=== PATIENT | female | born 1990 | race Caucasian/White ===

== ENCOUNTER → 2021-03-24 11:29 | Outpatient (BNVA) | payer OTHER, SELFPAY | PROVIDERS: Family Provider Family Medicine; PCP Family Medicine; Visit Provider Registered Nurse | DX: N39.0 Urinary tract infection, site not specified (principal); R39.9 Unspecified symptoms and signs involving the genitourinary system | CPT/HCPCS: 81000 ==

== ENCOUNTER 2021-04-25 15:08 | Outpatient (CLI) | payer OTHER, SELFPAY ==
--- NOTE | 2021-04-25 15:32 | XR_ITS ---
WS: [id number] Chest with right rib detail, 04/25/2021 Clinical Data: PLEURODYNIA Comparison: None. Findings: The lungs show no nodules, masses, or effusions. The heart is normal. No pneumonia or pneumothorax is seen. The ribs are intact. No rib fractures seen. No subcutaneous emphysema is present. XR/XR ribs RT mn 3V w [id number] Impression: Negative chest with right rib detail.
== END 2021-04-25 15:09 | disposition home or self-care (01) ==
PROVIDERS: PCP Nurse Practitioner Family; Visit Provider Nurse Practitioner Family
DX: R07.81 Pleurodynia (principal)
CPT/HCPCS: 71101

== ENCOUNTER 2023-04-23 10:59 | Outpatient (CLI) | payer OTHER, SELFPAY ==
--- NOTE | 2023-04-23 10:30 | US_ITS ---
WS: [id number] ULTRASOUND EARLY TECHNIQUE: transvaginal sonography to better evaluate the uterus and ovaries. CLINICAL INFORMATION: O20.0 - Threatened LMP: 03/12/2023 Beta hCG: Unknown. COMPARISON: None. FINDINGS: UTERUS AND GESTATIONAL SAC Intrauterine gestations: Single live intrauterine with gestational sac and pole. Smal l amount of fluid in the cervix. Tiny cyst within the endometrium measuring 4 mm likely incidental Estimated gestational age: 6w2d with estimated delivery 12/15/2023 Yolk sac: 0.5 cm. [place] rump length (CRL): 0.6 cm. heart motion: 136 BPM. Subchorionic hemorrhage: None. OVARIES Right ovary: Right ovarian cyst or corpus luteum cyst measuring 2.2 x 2.4 x 2.4 cm left ovary: Normal. FREE FLUID None. IMPRESSION: 1. Single live intrauterine with cardiac activity 136 bpm. 2. pole visualized with estimated gestational age; 6w2d 3. No visualized subchorionic hemorrhage. 4. Small amount of fluid in the cervix. 5. Right ovarian cyst or corpus luteum cyst measuring 2.2 x 2.4 x 2.4 cm. Otherwise normal ovaries. 6. No free fluid in the cul-de-sac.
== END 2023-04-23 11:00 | disposition home or self-care (01) ==
PROVIDERS: PCP Nurse Practitioner Family; Visit Provider Nurse Practitioner Women's Health
DX: O20.0 Threatened abortion (principal); O34.81 Maternal care for other abnormalities of pelvic organs, first trimester; N83.11 Corpus luteum cyst of right ovary; Z3A.01 Less than 8 weeks gestation of pregnancy
CPT/HCPCS: 76817; 84315; 84443; 84702; 85025; 86850; 86900; 87086

== ENCOUNTER 2023-04-24 14:04 | Emergency (ER) | payer OTHER, SELFPAY ==
[2023-04-24 14:11] VITALS: BP 107/73; PULSE 75; RESP 16; TEMP 36.8; O2SAT 98; BMI 29.4
--- NOTE | 2023-04-24 14:40 | USR_ITS ---
PROCEDURE INFORMATION: Exam: US First Trimester, Transabdominal and US , Transvaginal Exam date and time: 04/24/2023 3:40 PM Age: 32 years old Clinical indication: Lmp or gestational age (in weeks): Bleeding; Antepartum complications; ; Additional info: Threatened miscarriage LABS AND CLINICAL REPORTS: Last menstrual period start date: 03/12/2023 Gestational age (Established): 6 w 1 d Estimated due date (Established): 12/17/2023 TECHNIQUE: Imaging protocol: Real-time transabdominal obstetrical ultrasound of the maternal pelvis and a first trimester , less than 14 weeks 0 days, with image documentation. Transvaginal imaging was used for better evaluation of the fetus, adnexa, and/or cervix. COMPARISON: US OB transvaginal [id number] 04/23/2023 11:11 AM FINDINGS: Uterus measures 4.9 cm x 9.5 cm x 4.6 cm. No evidence of intrauterine gestation. Ovaries not visualized due to overlying bowel gas. US/US OB <= 14 weeks fetus [id number] IMPRESSION: No evidence of intrauterine gestation.
--- NOTE | 2023-04-24 14:42 | W.ED.PREGNAN ---
HPI - General: Chief complaint: Vaginal Bleeding Stated complaint: 6 weeks , bleeding Time Seen by Provider: 04/24/23 14:19 History of Present Illness: Patient is a 32-year-old female that is a G2, at approximately 6 weeks . Last menstrual cycle 01/15/2023. Patient reports she has been treated for a urinary tract infection for the last 3 weeks. She was started on Augmentin but did not improve and changed to Keflex. She took Keflex for 5 days and then antibiotics were changed back to Augmentin. Patient notes 5 days of vaginal bleeding. She has seen her SAFETY INSTRUCTOR and PCP this week. She was seen by her SAFETY INSTRUCTOR yesterday and underwent an ultrasound. This is a confirmed intrauterine This morning patient woke with abdominal cramping and worse bleeding Associated symptoms: Reports abdominal pain; Deny dysuria, headache(s), malaise, nausea or vomiting Review of Systems General: Reports: 10 or more systems reviewed and unremarkable except in HPI and below Const: Denies: fever(s), chills, change in appetite, change in weight, fatigue or malaise Eyes: Denies: change in vision, eye discomfort, eye discharge or eye redness ENMT: Denies: throat pain, enlarged tonsils, odynophagia, hoarseness, ear or mastoid pain, ear discharge, change in hearing, tinnitus, nasal discharge, nasal congestion, post nasal drip or sinus pain Card: Denies: chest pain, palpitations, irregular heart rhythm, edema, dyspnea on exertion, orthopnea or leg pain with exertion Resp: Denies: dyspnea, productive cough, non-productive cough, wheezing, stridor or chest congestion GI: Reports: abdominal pain; Denies: nausea, vomiting, dysphagia, diarrhea, constipation, bloating, GI cramping or hematochezia : Reports: urinary frequency and vaginal bleeding; Denies: flank pain, difficulty voiding, dysuria, urinary urgency, urinary hesitancy, oliguria or hematuria Musc: Denies: neck pain, back pain, extremity pain, joint pain, joint swelling, joint redness, joint warmth or muscle weakness Skin/Breast: Denies: rash, pruritus, erythema, photosensitivity or new lesions Neuro: Denies: headache(s), numbness in extremities, weakness in extremities, sensory changes, lack of coordination, difficulty walking, frequent falls, dizziness, confusion, Slurred speech present, difficulty communicating thoughts, seizure-like activity or involuntary movements Endo: Denies: polyuria, polydipsia or tired all the time Brennon/Lymph: Denies: easy bruising or easy bleeding PFS ED PFSH: Medical History (Updated 04/24/23 @ 16:41 by CONCEPCION Baig) Behcet's syndrome No pertinent past medical history neghx:htn,dm,thyroid,dvt/pe PCP: [facility] Surgical History (Updated 04/23/23 @ 09:12 by Cele Vasquez APN, VEENA) No pertinent past surgical history Family History Grandfather Colon cancer paternal Grandmother Diabetes maternal Family/Other Prostate cancer paternal uncle Denies family history of Ovarian cancer Heart disease Hyperlipidemia Breast cancer Hypertension Uterine cancer Thyroid disease Stroke Physical Exam Const: COMMON NORMALS: no acute distress, patient oriented x3 and alert GENERAL APPEARANCE: cooperative ORIENTATION/CONSCIOUSNESS: Yes awake, Yes oriented to person, Yes oriented to place and Yes oriented to time HENMT: COMMON NORMALS: normocephalic and atraumatic HEAD & SCALP: normocephalic and atraumatic FACE & SINUS: normal facial exam MOUTH: Normal oral and palatal mucosa present THROAT: posterior oropharynx normal Eye: COMMON NORMALS: Equal, round and reactive pupils present, EOMs intact bilaterally, conjunctivae normal and no scleral icterus GENERAL EYE: appearance normal, both eyes and all related structures ALIGNMENT: Yes alignment normal PERIORBITAL: periorbital findings normal CONJUNCTIVA: Yes conjunctivae normal PUPIL: Yes Equal, round and reactive pupils present Neck/C-Spine: COMMON NORMALS: full ROM GENERAL: Yes normal visual inspection Lymph: LYMPHATIC: no lymphadenopathy noted Chest: COMMONS NORMALS: normal inspection of the chest Breast/axilla inspection: Yes no chest deformity, asymmetry, normal contours, no nodules, masses, tenderness Resp: COMMON NORMALS: normal respiratory effort, No retractions, No use of accessory muscles and clear to auscultation bilaterally EFFORT & INSPECTION: Yes able to speak in complete sentences and Yes symmetric chest movement AUSCULTATION: clear to auscultation bilaterally Cardio: COMMON NORMALS: regular rate, regular rhythm and Peripheral pulses 2+ throughout RATE: regular rate RHYTHM: regular rhythm PERIPHERAL PULSES: Peripheral pulses 2+ throughout GI: COMMON NORMALS: Normal to inspection, nondistended, normoactive bowel sounds present, Soft to palpation, non-tender and No hepatosplenomegaly present INSPECTION: Yes normal to inspection AUSCULTATION: Yes normoactive bowel sounds PALPATION: Yes Soft to palpation and Yes No hepatosplenomegaly present RECTAL EXAM: deferred Extremity: COMMON NORMALS: normal to inspection GENERAL: Yes normal exam except as noted Neuro: COMMON NORMALS: patient oriented x3 SENSORIUM/ORIENTATION: Yes alert, Yes oriented to person, Yes oriented to place and Yes oriented to time CRANIAL NERVES: Yes CN normal except as noted Psych: COMMON NORMALS: mental status grossly normal, Normal thought process present, cooperative, activity/motor behavior normal, denies homicidal ideation and denies suicidal ideation THOUGHT PROCESS: Normal thought process present Skin: COMMON NORMALS: no rashes or lesions noted, no wounds and turgor normal GENERAL SKIN EXAM: no rashes or lesions noted and turgor normal Course Vital Signs: Vital signs: Vital Signs Temperature 98.3 F 04/24/23 14:11 Pulse Rate 75 04/24/23 14:11 Respiratory Rate 16 04/24/23 14:11 Blood Pressure 107/73 04/24/23 14:11 Pulse Oximetry 98 04/24/23 14:11 Oxygen Delivery Me thod Room Air 04/24/23 14:11 MDM - OB/Uterine Contractions Medical Decision Making Patient is a 32-year-old female that is a G2, P1 6-week female. Patient arrived this afternoon with increased abdominal pain and increased bleeding. Patient underwent repeat labs which revealed no significant anemia, leukocytosis, electrolyte shift. There was a decline in the hCG quant from [id number]. The ultrasound reveals no evidence of an intrauterine gestation. Patient has miscarried the . I did speak with Dr. Goldberg who has advised Lysteda 650 mg - 2 tablets p.o. 3 times daily for 5 days. Would like her to follow-up with SAFETY INSTRUCTOR in 1 week. She does have an appointment Wednesday but she is going to call Wednesday to see what day they want her to come in. Patient I discussed whether or not she should change her antibiotics. Have advised her that the susceptibility from the culture shows that she is on an antibiotic that should work. He can follow-up with her SAFETY INSTRUCTOR regarding this at that time. All questions answered Lab Data 04/24/23 15:02 04/24/23 15:02 Radiology Impressions Ultrasound 04/24/23 14:40 IMPRESSION: No evidence of intrauterine gestation. Laboratory Results WBC 8.1 10^3/uL (4.0-10.0) 04/24/23 15:02 RBC 5.00 10^6/uL (4.1-5.3) 04/24/23 15:02 Hgb 14.7 g/dL (11.5-15.3) 04/24/23 15:02 Hct 43.5 % (37.0-47.0) 04/24/23 15: MCV 87.0 fl (81-99) 04/24/23 15:02 MCH 29.4 pg (28.0-34.0) 04/24/23 15: MCHC 33.8 g/dL (30.0-36.0) 04/24/23 15: RDW 12.3 % (12.1-15.1) 04/24/23 15:02 Plt Count 240 10^3/cmm (130-400) 04/24/23 15:02 MPV 9.2 fL (7.4-10.4) 04/24/23 15:02 Neut % (Auto) 72.3 % 04/24/23 15:02 Lymph % (Auto) 21.0 % 04/24/23 15:02 [place] % (Auto) 4.1 % 04/24/23 15:02 Eos % (Auto) 1.8 % 04/24/23 15:02 Baso % (Auto) 0.6 % 04/24/23 15:02 Neut # (Auto) 5.88 10^3/uL (1.8-7.7) 04/24/23 15:02 Lymph # (Auto) 1.7 10^3/uL (0.8-4.8) 04/24/23 15:02 [place] # (Auto) 0.3 10^3/uL (0.2-0.9) 04/24/23 15:02 Eos # (Auto) 0.2 10^3/uL (0.0-0.8) 04/24/23 15:02 Baso # (Auto) 0.1 10^3/uL (0.0-0.1) 04/24/23 15:02 Nucleated RBC % (auto) 0 % 04/24/23 15:02 Nucleated RBCs # 0.0 /100WBC 04/24/23 15:02 Sodium 139 mmol/L (136-145) 04/24/23 15:02 Potassium 3.9 mmol/L (3.5-5.1) 04/24/23 15:02 Chloride 103 mmol/L (98-107) 04/24/23 15:02 Carbon Dioxide 24 mmol/L (22-29) 04/24/23 15:02 Anion Gap 15.9 (5-19) 04/24/23 15:02 BUN 6 mg/dL (6-20) 04/24/23 15:02 Creatinine 0.6 mg/dL (0.5-0.9) 04/24/23 15:02 GFR Calculation 114.4 mL/min (90-130) 04/24/23 15:02 Glucose 102 mg/dL (65-115) 04/24/23 15:02 Calculated Osmolality 286 mOsm/kg (285-295) 04/24/23 15:02 Calcium 9.2 mg/dL (8.5-10.5) 04/24/23 15:02 Total Bilirubin 0.5 mg/dL (0.15-1.2) 04/24/23 15:02 AST 21 U/L (0-32) 04/24/23 15:02 ALT 22 U/L (0-33) 04/24/23 15:02 Alkaline Phosphatase 82 U/L (35-105) 04/24/23 15:02 Total Protein 7.3 g/dL (6.6-8.7) 04/24/23 15:02 Albumin 4.6 g/dL (3.5-5.2) 04/24/23 15:02 Globulin 2.7 g/dL (1.3-4.6) 04/24/23 15:02 Ser , Semi-Qnt 1162.00 mIU/mL 04/24/23 15:02 Discharge Plan Discharge Patient Disposition: Home Clinical Impression: Complete miscarriage Condition: Stable Prescriptions: New tranexamic acid [Lysteda] 650 mg tablet 1,300 mg PO TID 5 Days Qty: 30 0RF tranexamic acid [Lysteda] 650 mg tablet 1,300 mg PO TID 5 Days Qty: 30 0RF No Action sertraline 25 mg tablet 25 mg PO DAILY prenat.vits,ezequiel,fli-anig-fjptt Tablet 1 tab PO DAILY Discharge Orders: Discharge ED (Routine); Ordered 04/24/23 Ordered By: Tashi Johnston Referrals: Stapleton,BRYNN Abraham [Primary Care Provider] - Discharge Diet: Advance as tolerated Discharge Activity: Resume usual activity Patient Instructions: Tranexamic acid (By mouth) (Lysteda), Miscarriage (ED), Pain Management Activity Restrictions/Additional Instructions: Please take medication as prescribed Please follow-up with SAFETY INSTRUCTOR in 1 week. Call Wednesday to confirm what day to return on Turn to the emergency department for new concerning or worsening symptoms Coding Level of Care Code ED Associate Broker for Dali Rosenbaum
[2023-04-24 15:17] LABS: Basophils # 0.1 10^3/uL (0.0-0.1); Basophils % 0.6 %; Eosinophils # 0.2 10^3/uL (0.0-0.8); Eosinophils % 1.8 %; Hematocrit 43.5 % (37.0-47.0); Hemoglobin 14.7 g/dL (11.5-15.3); Lymphocytes # 1.7 10^3/uL (0.8-4.8); Mean Corpuscular HGB Conc 33.8 g/dL (30.0-36.0); Mean Corpuscular Hemoglobin 29.4 pg (28.0-34.0); Mean Platelet Volume 9.2 fL (7.4-10.4); Monocytes # 0.3 10^3/uL (0.2-0.9); Monocytes % 4.1 %; Neutrophils # 5.88 10^3/uL (1.8-7.7); Neutrophils % 72.3 %; Nucleated Red Blood Cells % 0 %; Platelet Count 240 10^3/cmm (130-400); Red Cell Distribution Width 12.3 % (12.1-15.1); White Blood Count 8.1 10^3/uL (4.0-10.0)
[2023-04-24 15:49] LABS: Alanine Aminotransferase 22 U/L (0-33); Albumin Level 4.6 g/dL (3.5-5.2); Alkaline Phosphatase 82 U/L (35-105); Anion Gap 15.9 (5-19); Aspartate Amino Transferase 21 U/L (0-32); Blood Urea Nitrogen 6 mg/dL (6-20); Calcium 9.2 mg/dL (8.5-10.5); Carbon Dioxide 24 mmol/L (22-29); Chloride 103 mmol/L (98-107); Globulin 2.7 g/dL (1.3-4.6); Glomerular Filtration Rate 114.4 mL/min (90-130); Glucose 102 mg/dL (65-115); Osmolality Calculated 286 mOsm/kg (285-295); Potassium 3.9 mmol/L (3.5-5.1); Sodium 139 mmol/L (136-145); Total Bilirubin 0.5 mg/dL (0.15-1.2); Total Protein 7.3 g/dL (6.6-8.7)
[2023-04-24 17:08] VITALS: BP 110/89; PULSE 79; RESP 16; O2SAT 99
== END 2023-04-24 17:09 | disposition home or self-care (01) ==
PROVIDERS: Emergency Provider Nurse Practitioner; PCP Nurse Practitioner Family
DX: O03.9 Complete or unspecified spontaneous abortion without complication (principal)
CPT/HCPCS: 36415; 76801; 80053; 84702; 85025; 99284

== ENCOUNTER → 2023-04-29 14:05 | Outpatient (BNVA) | payer OTHER, SELFPAY | PROVIDERS: PCP Nurse Practitioner Family; Visit Provider Nurse Practitioner Women's Health | DX: O03.4 Incomplete spontaneous abortion without complication (principal) | CPT/HCPCS: 84702 ==

== ENCOUNTER → 2023-07-27 12:56 | Outpatient (BNVA) | payer OTHER, SELFPAY | PROVIDERS: PCP Nurse Practitioner Family; Visit Provider Nurse Practitioner Women's Health | DX: R30.0 Dysuria (principal); Z32.00 Encounter for pregnancy test, result unknown | CPT/HCPCS: 84315; 84702; 87077; 87086; 87184 ==

== ENCOUNTER → 2023-07-29 12:10 | Outpatient (BNVA) | payer OTHER, SELFPAY | PROVIDERS: PCP Nurse Practitioner Family; Visit Provider Nurse Practitioner Women's Health | DX: O36.80X0 Pregnancy with inconclusive fetal viability, not applicable or unspecified (principal); Z3A.00 Weeks of gestation of pregnancy not specified | CPT/HCPCS: 84702 ==

== ENCOUNTER → 2023-08-10 15:35 | Outpatient (BNVA) | payer OTHER, SELFPAY | PROVIDERS: PCP Nurse Practitioner Family; Visit Provider Nurse Practitioner Women's Health | DX: O23.40 Unspecified infection of urinary tract in pregnancy, unspecified trimester (principal); Z3A.00 Weeks of gestation of pregnancy not specified | CPT/HCPCS: 84315; 87086 ==

== ENCOUNTER → 2023-08-11 09:28 | Outpatient (BNVA) | payer OTHER, SELFPAY | PROVIDERS: PCP Nurse Practitioner Family; Visit Provider Nurse Practitioner Women's Health | DX: Z36.87 Encounter for antenatal screening for uncertain dates (principal) | CPT/HCPCS: 76817; 84315 ==

== ENCOUNTER → 2023-08-30 10:00 | Outpatient (BNVA) | payer OTHER, SELFPAY | PROVIDERS: PCP Nurse Practitioner Family; Visit Provider Nurse Practitioner Women's Health | DX: Z34.80 Encounter for supervision of other normal pregnancy, unspecified trimester (principal) | CPT/HCPCS: 87086 ==

== ENCOUNTER → 2023-09-03 08:42 | Outpatient (BNVA) | payer OTHER, SELFPAY | PROVIDERS: PCP Nurse Practitioner Family; Visit Provider Obstetrics & Gynecology | DX: Z34.80 Encounter for supervision of other normal pregnancy, unspecified trimester (principal) | CPT/HCPCS: 81000 ==

== ENCOUNTER → 2023-09-20 10:43 | Outpatient (BNVA) | payer OTHER, SELFPAY | PROVIDERS: PCP Nurse Practitioner Family; Visit Provider Obstetrics & Gynecology | DX: Z34.90 Encounter for supervision of normal pregnancy, unspecified, unspecified trimester (principal) | CPT/HCPCS: 80307; 84315; 85025; 86592; 86762; 86803; 86850; 86900; 87086; 87340; 87491; 87591; 87624; 87806 ==

== ENCOUNTER → 2023-10-19 08:34 | Outpatient (BNVA) | payer OTHER, SELFPAY | PROVIDERS: PCP Nurse Practitioner Family; Visit Provider Nurse Practitioner Women's Health | DX: Z34.80 Encounter for supervision of other normal pregnancy, unspecified trimester (principal); O23.40 Unspecified infection of urinary tract in pregnancy, unspecified trimester; O21.9 Vomiting of pregnancy, unspecified; F41.9 Anxiety disorder, unspecified; F32.A Depression, unspecified | CPT/HCPCS: 81000 ==

== ENCOUNTER → 2023-11-15 14:21 | Outpatient (BNVA) | payer OTHER, SELFPAY | PROVIDERS: PCP Nurse Practitioner Family; Visit Provider Nurse Practitioner Women's Health | DX: Z34.80 Encounter for supervision of other normal pregnancy, unspecified trimester (principal) | CPT/HCPCS: 76805 ==

== ENCOUNTER → 2023-12-08 13:51 | Outpatient (BNVA) | payer OTHER, SELFPAY | PROVIDERS: PCP Nurse Practitioner Family; Visit Provider Nurse Practitioner Women's Health | DX: Z34.80 Encounter for supervision of other normal pregnancy, unspecified trimester (principal); R10.2 Pelvic and perineal pain | CPT/HCPCS: 84315; 87070; 87205 ==

== ENCOUNTER → 2023-12-14 13:08 | Outpatient (BNVA) | payer OTHER, SELFPAY | PROVIDERS: PCP Nurse Practitioner Family; Visit Provider Nurse Practitioner Women's Health | DX: Z34.80 Encounter for supervision of other normal pregnancy, unspecified trimester (principal) | CPT/HCPCS: 76816; 82950; 84315 ==

== ENCOUNTER → 2023-12-17 08:19 | Outpatient (BNVA) | payer OTHER, SELFPAY | PROVIDERS: PCP Nurse Practitioner Family; Visit Provider Nurse Practitioner Women's Health | DX: Z34.80 Encounter for supervision of other normal pregnancy, unspecified trimester (principal) | CPT/HCPCS: 82951; 82952 ==

== ENCOUNTER 2023-12-18 11:01 | Outpatient (CLI) | payer OTHER, SELFPAY ==
[2023-12-18 11:16] VITALS: BP 130/73; PULSE 85
[2023-12-18 11:22] VITALS: BMI 33.5
[2023-12-18 11:48] VITALS: BP 124/74; PULSE 83
== END 2023-12-18 11:50 | disposition home or self-care (01) ==
LOC: OPOB 11:02 → OBGYN 11:02
PROVIDERS: PCP Nurse Practitioner Family; Visit Provider Obstetrics & Gynecology
DX: O26.899 Other specified pregnancy related conditions, unspecified trimester (principal); Z3A.00 Weeks of gestation of pregnancy not specified; N89.8 Other specified noninflammatory disorders of vagina
CPT/HCPCS: 99211

== ENCOUNTER → 2024-01-13 07:45 | Outpatient (BNVA) | payer OTHER, SELFPAY | PROVIDERS: PCP Nurse Practitioner Family; Visit Provider Obstetrics & Gynecology | DX: Z34.80 Encounter for supervision of other normal pregnancy, unspecified trimester (principal) | CPT/HCPCS: 84315; 85025 ==

== ENCOUNTER → 2024-02-08 08:39 | Outpatient (BNVA) | payer OTHER, SELFPAY | PROVIDERS: PCP Nurse Practitioner Family; Visit Provider Obstetrics & Gynecology | DX: O36.63X0 Maternal care for excessive fetal growth, third trimester, not applicable or unspecified (principal); Z3A.35 35 weeks gestation of pregnancy | CPT/HCPCS: 76816 ==

== ENCOUNTER 2024-03-06 06:00 | Outpatient (CLI) | payer OTHER, SELFPAY ==
--- NOTE | 2024-03-06 09:38 | P.ANESASSM_ITS ---
Pre-Anesthetic Assessment Height/Weight: Height 1.78 m Epidural Familial anesthetic complications: None Was Beta Christo taken within 24 hours: N/A Was Clonidine taken within 24 hours: N/A Last intake: > 8 hrs Social No alcohol and No tobacco Exam alert, oriented x 3, clear to auscultation bilaterally and regular rate & rhythm Airway Mallampati: Class II Dentition: full CV/HEM Hypertension GI Gastroesophageal Reflux Disease Metabolic Hyperlipidemia Anesthetic Plan ASA status: 2 Anesthesia: Regional (specify below) Risk of > 500 ml blood loss (7ml/kg in children): No Medications/Allergies Home Medications Medication Instructions Recorded Confirmed Last Taken Type prenat.vits,ezequiel,hnb-qwnw-uokhs 1 tab PO DAILY 04/23/23 02/22/24 Unknown History sertraline 50 mg tablet 50 mg PO DAILY #30 tabs 08/11/23 02/22/24 Unknown Rx cephalexin 250 mg capsule 250 mg PO DAILY #90 caps 11/16/23 02/22/24 Unknown Rx cetirizine 10 mg capsule (Zyrtec) 10 mg PO DAILY PRN 01/13/24 02/22/24 Unknown History Allergies Allergy/AdvReac Type Severity Reaction Status Date / Time Sulfa (Sulfonamide Allergy Mild Unknown Verified 02/22/24 14:31 Antibiotics) PFSH Anesthesia Medical History No pertinent past medical history neghx:htn,dm,thyroid,dvt/pe PCP: [facility] Behcet's syndrome Surgical History No pertinent past surgical history Family History Grandfather Colon cancer paternal Grandmother Diabetes maternal Family/Other Prostate cancer paternal uncle Denies family history of Ovarian cancer Heart disease Hyperlipidemia Breast cancer Hypertension Uterine cancer Thyroid disease Stroke Data Anesthesia Cardiac Studies: No Data to Display
== END 2024-03-06 06:01 | disposition home or self-care (01) ==
LOC: OPS 06-06 14:35
PROVIDERS: PCP Nurse Practitioner Family; Visit Provider Obstetrics & Gynecology
DX: Z34.93 Encounter for supervision of normal pregnancy, unspecified, third trimester (principal); Z3A.38 38 weeks gestation of pregnancy
CPT/HCPCS: 76816

== ENCOUNTER → 2024-03-09 08:19 | Outpatient (BNVA) | payer OTHER, SELFPAY | PROVIDERS: PCP Nurse Practitioner Family; Visit Provider Obstetrics & Gynecology | DX: Z34.80 Encounter for supervision of other normal pregnancy, unspecified trimester (principal) | CPT/HCPCS: 84315; 87081 ==

== ENCOUNTER 2024-03-26 15:25 | Inpatient (IN) | payer OTHER, SELFPAY ==
[2024-03-26] VITALS (8 sets, daily range): BP systolic 102–147; BP diastolic 58–72; PULSE 70–96; TEMP 35.3–35.6; BMI 35.7
[2024-03-26] MEDS: miSOPROStol 100 mcg tablet 25 MCG VAGINAL ×2 (15:56→20:22)
[2024-03-26 16:00] LABS: Basophils % 0.3 %; Eosinophils # 0.1 10^3/uL (0.0-0.8); Eosinophils % 0.8 %; Hematocrit 40.4 % (36-47); Lymphocytes # 1.6 10^3/uL (0.8-4.8); Lymphocytes % 20.7 %; Mean Corpuscular HGB Conc 34.4 g/dL (30-55); Mean Corpuscular Hemoglobin 30.3 pg (27-33); Mean Platelet Volume 9.7 fL (7.4-10.4); Monocytes # 0.6 10^3/uL (0.2-0.9); Monocytes % 8.3 %; Neutrophils # 5.39 10^3/uL (1.8-7.7); Neutrophils % 69.5 %; Nucleated Red Blood Cells % 0 %; Platelet Count 209 10^3/cmm (157-399); Red Blood Count 4.59 10^6/uL (3.85-5.65); Red Cell Distribution Width 12.8 % (12.1-15.1); White Blood Count 7.74 10^3/uL (3.29-11.43)
--- NOTE | 2024-03-26 17:11 | PM.OPHPUD ---
Labor & Delivery H&P Update Date of Procedure: March 26, 2024 Date H&P Performed: 03/23/24 H&P update information: I have reviewed H&P completed within last 30 days, I have examined patient prior to procedure and No changes to prior documentation Admission Diagnosis:
[2024-03-27] VITALS (83 sets, daily range): BP systolic 101–153; BP diastolic 51–98; PULSE 57–94; RESP 16; O2SAT 88–99
[2024-03-27] MEDS: lactated ringers 1,000 ML 999 ML IV ×2 (00:40→06:52)
[2024-03-27] MEDS: ROPivacaine syringe 100 MG/50 ML SYRINGE 10 MG EPIDURAL ×2 (07:34→11:55)
[2024-03-27] MEDS: dextrose 5%-lactated ringers 1,000 ML 125 ML IV (08:00)
--- NOTE | 2024-03-27 08:12 | P.ANESASSM_ITS ---
Pre-Anesthetic Assessment Height/Weight: Height 1.78 m Weight 112.945 kg Temp Pulse BP Pulse Ox O2 Del Method 95.5 F L 71 106/65 97 Room Air 03/26/24 23:17 03/27/24 08:07 03/27/24 08:07 03/27/24 07:57 03/27/24 06:14 Social No alcohol and No tobacco Exam alert, oriented x 3, clear to auscultation bilaterally and regular rate & rhythm Airway Submandibular: within normal limits Cervical ROM: within normal limits Mallampati: Class I History/ROS No significant history except as noted Anesthetic Plan ASA status: 2E Anesthesia: Regional (specify below) Other: labor epidural Medications/Allergies Home Medications Medication Instructions Recorded Confirmed Last Taken Type prenat.vits,ezequiel,blh-yupx-sydom 1 tab PO DAILY 04/23/23 03/23/24 Unknown History sertraline 50 mg tablet 50 mg PO DAILY #30 tabs 08/11/23 03/23/24 Unknown Rx cephalexin 250 mg capsule 250 mg PO DAILY #90 caps 11/16/23 03/23/24 Unknown Rx cetirizine 10 mg capsule (Zyrtec) 10 mg PO DAILY PRN 01/13/24 03/23/24 Unknown History Allergies Allergy/AdvReac Type Severity Reaction Status Date / Time Sulfa (Sulfonamide Allergy Mild Unknown Verified 03/23/24 15:14 Antibiotics) Current Medications Generic Name Dose Route Start Last Admin Trade Name Freq PRN Reason Stop Dose Admin Lactated Ringer's 1,000 mls @ 999 mls/hr 03/26/24 15:05 03/27/24 01:15 Lactated Ringers IV 125 mls/hr .Q1H1M PRN Infusion Per L&D Rescitation Protocol Lactated Ringer's 1,000 mls @ 999 mls/hr 03/27/24 06:00 03/27/24 06:52 Lactated Ringers IV 999 mls/hr .Q1H1M PRN Administration See label comments Ropivacaine 100 mg in 50 mls @ 10 mls/hr 03/27/24 07:00 03/27/24 07:34 Naropin Syringe EPIDURAL 10 mls/hr .Q5H MISAEL Administration PFSH Anesthesia Medical History No pertinent past medical history neghx:htn,dm,thyroid,dvt/pe PCP: Marlin Stapleton Behcet's syndrome Surgical History No pertinent past surgical history Family History Grandfather Colon cancer paternal Grandmother Diabetes maternal Family/Other Prostate cancer paternal uncle Denies family history of Ovarian cancer Heart disease Hyperlipidemia Breast cancer Hypertension Uterine cancer Thyroid disease Stroke Social History Smoking and tobacco/nicotine status: unknown if used tobacco/nicotine Female Reproductive History : 3 Data Anesthesia 03/26/24 15:05 Short CBC 03/26/24 Range/Units 15:05 WBC 7.74 (3.29-11.43) 10^3/uL Hgb 13.90 (11.27-16.99) g/dL Hct 40.4 (36-47) % MCV 88.0 (85-98) fl Plt Count 209 (157-399) 10^3/cmm Neut % (Auto) 69.5 % Neut # (Auto) 5.39 (1.8-7.7) 10^3/uL Blood Bank 03/26/24 15:05 Blood Type A Positive Rho(D) Type Rh positive Antibody Screen Negative Cardiac Studies: 2 No Data to Display
--- NOTE | 2024-03-27 08:14 | ANES.PROC ---
Anesthesia Procedures Procedure/Date: 03/27/24 Epidural: Time Out Performed: Yes Consents Signed: Procedure Consent Consent: requested by attending/covering physician Lumbar Level: L3-L4 Epidural procedure: sterile prep of area, 1% lidocaine to numb the area, 18 g needle, negative for paresthesia passed, neg for paresthesia, test dose given and no systemic response
[2024-03-27] MEDS: oxytocin 30 UNIT/500 ML BAG IV (10:30)
--- NOTE | 2024-03-27 13:11 | P.PN_ITS ---
Vitals/I&O/Wt Last Vital Signs Temp 95.5 F L 03/26/24 23:17 Pulse 61 03/27/24 12:58 BP 128/74 03/27/24 12:58 Pulse Ox 97 03/27/24 07:57 O2 Del Method Room Air 03/27/24 06:14 03/26/24 03/27/24 03/27/24 22:59 06:59 14:59 Intake Total 582.75 / 582.75 55.0 / 55.0 Balance 582.75 / 582.75 55.0 / 55.0 Weight last 48 hrs Weight 112.945 kg Physical Exam 2 Narrative: GA: Alert and oriented ?3. Lungs: Clear to auscultation bilaterally. Heart: Regular rhythm and rate. Abdomen: Gravid, full the height equals dates, nontender. JUNIOR DESIGNER: SVE; dilation: 5 cm, effacement: []%, station: [], presentation: [], membranes: AROM clear. Extremities: no edema, no cyanosis, no calves pain. heart tracing: Basal rate: [140's] bpm, Variability: [moderate], Accelerations: [present], Decelerations: [absent], Contraction: [q3min]. Urinary Catheter Management: Henry: Cath Placed During This Visit: yes Urinary Catheter Date of Insertion: 03/27/24 Urinary Catheter Time of Insertion: 08:30 Data 03/26/24 15:05 A&P Assessment and plan (1) Term : Attestations 2 Medical Necessity Statement*: In my professional opinion per admitting diagnosis Coding Level of Care Code Acute Code for Chg Fwd Diagnoses Term Z34.90
[2024-03-27] MEDS: ROPivacaine syringe 100 MG/50 ML SYRINGE 12 MG EPIDURAL (15:10)
--- NOTE | 2024-03-27 17:52 | P.PCNOB_ITS ---
Delivery Note: Date of delivery: March 27, 2024 Pre-delivery diagnoses: Term Post-delivery diagnoses: Term delivered Procedure: A spontaneous vaginal delivery Delivering Physician: Joe Goldberg MD Estimated blood loss (mL): 300 Findings: Term male weight 4210 g Apgars 8/9 Pre-Delivery Course: Ms. Jose is a 33 year old established patient with an LMP of 06/27/23, ESTEFANI 04/02/24, consistent with 6-week ultrasound placing her at 39 weeks, who [place] [facility] [place]. CC: Elective induction HPI: Received appropriate care. Daily vitamins since start of care. labs have all been normal, including negative for HIV. She was found to negative for Group B Strep from screening at 36 weeks. She has gained approximately 35 lbs throughout the . She denies a history of HTN during . Glucose tolerance screening for gestational diabetes was negative. Delivery: The patient was noted to be complete and pushing, so was placed in the dorsal lithotomy position, prepped and draped in the usual sterile fashion for a vaginal delivery. Pt. Noted to have epidural anesthesia. At 1624 the patient delivered a viable 39 weeks male weighing 4210 g with scores of 8 and 9 at one and five minutes, respectively. The vertex was delivered spontaneously over intact perineum. The patient was asked to push and the head delivered spontaneously in the DENNIS position, over an intact perineum. A nuchal cord was checked and 1 noted, and delivered through as necessary. The anterior shoulder delivered easily and the posterior shoulder followed. The remainder of the was easily delivered and the oropharynx and nasopharynx was bulb suctioned. The was noted to have spontaneous cry and spontaneous movement of all four extremities. The cord was clamped x 2 and cut and noted to have 2 arteries and one vein. The infant was passed to the mother's abdomen where nursing personnel were in attendance. The placenta delivered intact spontaneously and the uterus was explored. 20 units of Pitocin was placed in the IV bag to firm the uterus. Examination of the cervix and vaginal vault did not reveal any lacerations. A vaginal pack was then placed. Examination of the perineum showed a second-degree laceration. The laceration was repaired with 3-0 Vicryl in the normal fashion in a running non locking fashion to reapproximate the laceration in layers. The vaginal pack was then removed. The patient tolerated this procedure well, and recovered in L&D with her infant in their LDR room. All sponge and needle counts were correct. History History History 3 Term 1 0 Miscarriages/Ectopic 1 Living Children 1 Coding Level of Care Code Acute Code for Chg Fwd
[2024-03-27] MEDS: docusate sodium 100 mg Capsule PO (19:43)
[2024-03-27] MEDS: lanolin oint 7 gm 1 APPLIC TOPICAL (19:43)
[2024-03-27] MEDS: benzocaine-menthol 78 gm Canister 1 SPRAY TOPICAL (19:43)
[2024-03-27] MEDS: sertraline 50 mg Tablet PO (21:02)
[2024-03-27] MEDS: ibuprofen 800 mg tablet PO (21:02)
[2024-03-27] MEDS: cetirizine 10 mg Tablet PO (22:08)
[2024-03-27] MEDS: miSOPROStol 200 mcg Tablet 800 MCG PR (22:35)
[2024-03-27] MEDS: HYDROcodone-acetaminophen 5-325 mg Tablet PO (22:42)
[2024-03-27] MEDS: methylergonovine 0.2 mg/mL INJ 1 mL IM (22:44)
[2024-03-27] MEDS: tranexamic acid 1,000 MG/100 ML PREMIX 600 MG IV ×2 (22:46→23:32)
[2024-03-27] MEDS: oxytocin 30 UNIT/500 ML BAG 999 UNIT IV (23:19)
[2024-03-27] MEDS: carboprost tromethamine 250 mcg/mL Amp IM (23:20)
[2024-03-27] MEDS: fentaNYL 50 mcg/mL INJ 2mL IVP (23:24)
--- NOTE | 2024-03-27 23:38 | PC.NURSE ---
Addendum entered by Mayda Jay RN 03/28/24 07:35: Dr. Goldberg was once again called and informed about the clot that was unable to be expelled via fundal massages, Dr. Goldberg verbalized understanding and stated the bleeding was not from the suturing and tears and to continue with current management of the hemorrhage. ~ 10 minutes after the call patient stated she had to poop and refused to use a bedpan, so she was wheelchaired to the toilet where she passed a large fist sized blood clot and to her relief she no longer felt the need to poop, and her vaginal bleeding decreased to scant, with a firm, midline, -[address] Aguilar the provider suppose to be covering the patient was updated about her condition and did a vaginal exam per the patient's request. Original Note: Called to patient's room approximately 2230 from another nurse to alert me patient had passed a large blood clot. Fundal pressure was performed to a midline, firm uterus at -2 station. Cytotec 800mg [place] was given to patient. I called Dr. Goldberg and updated him about patient status, when I was alerted patient was releasing more clots and heavily bleeding. Dr. Goldberg ordered TXA and methergine to be given. Once those medications were given and started a second IV was placed in the right AC, CBC lab drawn and a fluid bolus started. Patient began complaining about intense abdominal cramping resulting in the dispelling of more clots and gushed of blood. Dr. Goldberg was called again to be updated and I requested 30mg of pitocin to be administered and the fentanyl protocol as well, he agreed and stated to give hemabate. After 45 minutes of the initial clot coming out patient bleeding had slowed to a trickle and she was no longer expelling clots but there was a clot peaking through the labia that was not being expelled via fundal massages.
[2024-03-28] VITALS (7 sets, daily range): BP systolic 118–132; BP diastolic 66–81; PULSE 59–85; RESP 16–18; TEMP 26.3–36.9
[2024-03-28 00:47] LABS: Hematocrit 22.5 % (36-47); Mean Corpuscular HGB Conc 33.3 g/dL (30-55); Mean Corpuscular Hemoglobin 31.4 pg (27-33); Mean Corpuscular Volume 94.1 fl (85-98); Mean Platelet Volume 10.1 fL (7.4-10.4); Platelet Count 103 10^3/cmm (157-399); Red Blood Count 2.39 10^6/uL (3.85-5.65); Red Cell Distribution Width 12.9 % (12.1-15.1); White Blood Count 5.67 10^3/uL (3.29-11.43)
[2024-03-28] MEDS: HYDROcodone-acetaminophen 5-325 mg Tablet PO (07:00)
[2024-03-28 07:14] LABS: Hematocrit 34.9 % (36-47); Mean Corpuscular HGB Conc 34.1 g/dL (30-55); Mean Corpuscular Hemoglobin 31.1 pg (27-33); Mean Corpuscular Volume 91.1 fl (85-98); Mean Platelet Volume 9.8 fL (7.4-10.4); Platelet Count 142 10^3/cmm (157-399); Red Blood Count 3.83 10^6/uL (3.85-5.65); Red Cell Distribution Width 12.8 % (12.1-15.1)
[2024-03-28 07:16] LABS: White Blood Count 11.26 10^3/uL (3.29-11.43)
--- NOTE | 2024-03-28 08:00 | ANE.PACU2 ---
Inpatient post-anesthesia follow up: Airway intact: Yes Vital signs: Temperature 98.4 F Pulse Rate 85 Respiratory Rate 18 Blood Pressure 123/80 Pulse Oximetry 96 Oxygen Delivery Me thod Room Air Oxygen Flow Rate Fraction of Inspir ed Oxygen Hydration adequate: Yes Nausea and vomiting: No Pain level: 1 Mental status: Baseline Epidural Start/End: Epidural Start Date: 03/27/24 Epidural Start Time: 07:42 Epidural End Date: 03/27/24 Epidural End Time: 18:21
[2024-03-28] MEDS: docusate sodium 100 mg Capsule PO (09:10)
[2024-03-28] MEDS: ibuprofen 800 mg tablet PO ×2 (09:11→14:04)
[2024-03-28] MEDS: PRENATAL VIT NO.130/IRON/FOLIC 1 EACH TABLET PO (09:11)
--- NOTE | 2024-03-28 15:46 | PM.OBGYDC ---
Discharge Providers CLINICAL REHABILITATION COORDINATOR Date of Admission: 03/26/24 15:25 Date of Discharge: 03/28/24 Attending Provider at Admission: Joe Goldberg MD Attending Provider at Discharge: Joe Goldberg MD Primary Care Provider: BRYNN Diana Diagnoses at Discharge Discharge Diagnosis (1) Term : Status: Acute Reason for Visit Reason for Visit: IOL Hospital Course Hospital Course Ms. Jose is a 33 year old established patient with an LMP of 06/27/23, ESTEFANI 04/02/24. Admitted for to labor and delivery for elective induction. She progressed to have a spontaneous vaginal delivery, complicated by hemorrhage. She delivered a viable 39 weeks male weighing 4210 g with scores of 8 and 9. overnight observation was uneventful. She is afebrile and hemodynamically stable day 1. Tolerating diet well. Ambulating without difficulty. She was counseled regarding pelvic rest for 6 weeks (no sex, no tampons, no vaginal douches). Return to the emergency room if any fever, increased bleeding or pain. Information Peripartum Data: Delivery Method: Vaginal Physical Exam Narrative: GA; alert and oriented x 3 HEENT: normal Breasts: engorged Nipples - skin intact Lungs; clear to auscultation Heart: regular rhythm, no murmurs. Abd: Appropriately tender. BS+. Uterine fundus below umbilicus. No Fundal Tenderness. Perineum: normal lochia. Extremities: no edema, no cyanosis, no tenderness. Urinary Catheter Management: Henry: Cath Placed During This Visit: yes, but has since been removed by the nurse Reason for Continuing Indwelling Catheter: Decision to DC Catheter Urinary Catheter Date of Insertion: 03/27/24 Urinary Catheter Time of Insertion: 08:30 Date Urinary Catheter Removed: 03/27/24 Time Urinary Catheter Discontinued: 16:20 History History History 3 Term 1 0 Miscarriages/Ectopic 1 Living Children 1 Discharge Data Studies Completed and Pending Laboratory Results WBC 11.26 10^3/uL (3.29-11.43) 03/28/24 06:58 Corrected WBC Cancelled 03/28/24 06:25 RBC 3.83 10^6/uL (3.85-5.65) L 03/28/24 06:58 Hgb 11.90 g/dL (11.27-16.99) D 03/28/24 06:58 Hct 34.9 % (36-47) L D 03/28/24 06:58 MCV 91.1 fl (85-98) 03/28/24 06:58 MCH 31.1 pg (27-33) 03/28/24 06:58 MCHC 34.1 g/dL (30-55) 03/28/24 06:58 RDW 12.8 % (12.1-15.1) 03/28/24 06:58 Plt Count 142 10^3/cmm (157-399) L D 03/28/24 06:58 MPV 9.8 fL (7.4-10.4) 03/28/24 06:58 Neut % (Auto) 69.5 % 03/26/24 15:05 Lymph % (Auto) 20.7 % 03/26/24 15:05 [place] % (Auto) 8.3 % 03/26/24 15:05 Eos % (Auto) 0.8 % 03/26/24 15:05 Baso % (Auto) 0.3 % 03/26/24 15:05 Neut # (Auto) 5.39 10^3/uL (1.8-7.7) 03/26/24 15:05 Lymph # (Auto) 1.6 10^3/uL (0.8-4.8) 03/26/24 15:05 [place] # (Auto) 0.6 10^3/uL (0.2-0.9) 03/26/24 15:05 Eos # (Auto) 0.1 10^3/uL (0.0-0.8) 03/26/24 15:05 Baso # (Auto) 0.0 10^3/uL (0.0-0.1) 03/26/24 15:05 Nucleated RBC % (auto) 0 % 03/26/24 15:05 Nucleated RBCs # 0.0 /100WBC 03/26/24 15:05 Blood Type A Positive 03/26/24 15:05 Rho(D) Type Rh positive 03/26/24 15:05 Antibody Screen Negative 03/26/24 15:05 Vitals Last Vital Signs Temp 97.5 F L 03/28/24 03:43 Pulse 59 L 03/28/24 03:43 Resp 16 03/27/24 23:24 BP 118/66 03/28/24 03:43 Pulse Ox 96 03/27/24 23:57 O2 Del Method Room Air 03/27/24 06:14 Results Labs OB ([facility]): Obstetrics US 03/06/24 Blood Type A Positive 03/26/24 Antibody Screen Negative 03/26/24 Hct 34.9 % (36-47) L 03/28/24 Hgb 11.90 g/dL (11.27-16.99) 03/28/24 Rho(D) Type Rh positive 03/26/24 Plt Count 142 10^3/cmm (157-399) L 03/28/24 Hep Bs Antigen Non-reactive (Nonreactive) 09/20/23 Hepatitis C Antibody Non-reactive (Nonreactive) 09/20/23 Rubella IgG Antibody 12.6 IU/mL (0.0-10.0) H 09/20/23 RPR Nonreactive (Nonreactive) 09/20/23 HIV 1&2 Ab & HIV 1 Ag Non-reactive (Non-Reactiv) 09/20/23 TSH 1.24 uIU/mL (0.27-4.20) 04/23/23 C.trachomatis RNA (TMA) Not detected (NOT DETECTED) 09/20/23 N.gonorrhoeae RNA (TMA) Not detected (NOT DETECTED) 09/20/23 T. vaginalis Amp RNA Not detected (NOT DETECTED) 09/20/23 Chlamydia/GC Comment See note 09/20/23 Glucose 1 Hr 50 gm 144 mg/dL (85-140) H 12/14/23 Gest Glucose Tolerance mg/dL 12/17/23 Ser , Semi-Qnt 133.70 mIU/mL 07/29/23 Urine Opiates Screen Negative ng/mL (Negative) 09/20/23 Ur Barbiturates Screen Negative ng/mL (Negative) 09/20/23 Ur Phencyclidine Scrn Negative ng/mL (Negative) 09/20/23 Ur Amphetamines Screen Negative ng/mL (Negative) 09/20/23 U Benzodiazepines Scrn Negative ng/mL (Negative) 09/20/23 Urine Cocaine Screen Negative ng/mL (Negative) 09/20/23 U Marijuana (THC) Screen Negative ng/mL (Negative) 09/20/23 Micro Urine Specimen 09/20/23 Pap Smear Interpret See note 09/20/23 Discharge Plan Discharge Patient Disposition: Home Condition: Stable Prescriptions: New acetaminophen 325 mg capsule 325 mg PO Q4H PRN (Reason: fever or pain) Qty: 60 0RF ibuprofen 800 mg tablet 800 mg PO TID PRN (Reason: pain) Qty: 60 0RF Continued prenat.vits,ezequiel,gil-apsz-kwwcf Tablet 1 tab PO DAILY Zyrtec 10 mg capsule 10 mg PO DAILY PRN (Reason: Allergy Symptoms) sertraline 50 mg tablet 50 mg PO DAILY Qty: 30 12RF cephalexin 250 mg capsule 250 mg PO DAILY Qty: 90 1RF Discharge Orders: Discharge Order (Routine); Ordered 03/28/24 Ordered By: Joe Goldberg Referrals: Joe Goldberg MD [Physician] - 6 Weeks Discharge Diet: Usual diet Discharge Activity: Limit activity as instructed Patient Instructions: Caring for Your Baby (GEN), Bleeding (GEN), Perineal Tear with Delivery (IP), Vaginal Delivery (GEN), Your 's Appearance (GEN), Opioid Safety Activity Restrictions/Additional Instructions: 1. Please call [facility] on next working day to make your appointment in 6 weeks. 2. Please stay home until you come back to the clinic on first post-hospatilization check up. 3. Please follow instructions on your medications CAREFULLY. 4. If you have abdominal incision, do not cover it unless dressing is necessary because of drainage. OK to shower, but avoid bath. Leave steri-strips until they fall off. If they are still on one week after surgery, you may remove them. 5. If you had vaginal surgery or vaginal repair, Dr. Goldberg may instruct you to take SITZ bath. 6. Yellow, blood tinged odorous vaginal discharge is usually normal after hysterectomy or vaginal surgeries. 7. No SEXUAL INTERCOURSE, tampons, or douches until you are completely released from the post-operative care. 8. Avoid constipation by eating right and maybe using some Metamucil or Milk of Magnesia. 9. All prescription refills are given during the working hours. Please do no wait till it runs out. Call the clinic at [phone] before your medication runs out. The clinic will get in touch with your doctor to prescribe medications if necessary. 10. Please remain within 40 mile radius from our hospital because emergencies do happen now and then during the post-operative period. 11. If you have stairs at home, take one step at a time slowly and minimize the number of trips. It helps to stay in one floor for the next few days. No lifting except what you can lift by one hand until you are released from the post-operative care. 12. Driving is discouraged until you are well healed. It may be 3-4 weeks before you feel strong enough to drive. You should be able to turn and look through the rear window without pain and you should be able to push the brake pedal very hard without pain before you drive. No fast rules, but SAFETY should be your primary concern. DO NOT drive if you are on sedating medications such as narcotics. 13. Call the clinic (during working hours) to make urgent appointment or go to the Emergency room, if any of the following occurs: i. Vaginal bleeding becomes heavy, more than a period. ii. Incision becomes red and sore, or drains pus. iii. Your TEMPERATURE is over 100.4F or you have chill. iv. IV site becomes red and swollen (a little ``knot?? is usually OK) v. Persistent nausea and vomiting vi. Persistent constipation or diarrhea vii. Rash or allergic reaction to medications. Discharge Attestations CLINICAL REHABILITATION COORDINATOR Time Spent in Discharge Care*: greater than 30 min Coding Level of Care Code Acute Code for Chg Fwd Diagnoses Term Z34.90
== END 2024-03-28 18:15 | disposition home or self-care (01) | DRG 806 ==
LOC: OPOB 15:25 → OBGYN 15:25
PROVIDERS: Obstetrics & Gynecology; Admitting Provider Obstetrics & Gynecology; PCP Nurse Practitioner Family; Visit Provider Obstetrics & Gynecology
DX: O69.81X0 Labor and delivery complicated by cord around neck, without compression, not applicable or unspecified (principal); O72.1 Other immediate postpartum hemorrhage; Z37.0 Single live birth; Z3A.39 39 weeks gestation of pregnancy; O70.1 Second degree perineal laceration during delivery
CPT/HCPCS: 36415; 51702; 59025; 59409; 85025; 85027; 86850; 86900; 96372; J2210; J2590; J2795; J3010; J7120; J7121

== ENCOUNTER 2024-05-30 06:33 | Day surgery (SDC) | payer OTHER, SELFPAY ==
[2024-05-29 09:52] LABS: Basophils # 0.1 10^3/uL (0.0-0.1); Basophils % 0.9 %; Eosinophils # 0.9 10^3/uL (0.0-0.8); Eosinophils % 17.2 %; Hematocrit 44.6 % (36-47); Lymphocytes # 1.4 10^3/uL (0.8-4.8); Mean Corpuscular HGB Conc 32.7 g/dL (30-55); Mean Corpuscular Hemoglobin 29.5 pg (27-33); Mean Corpuscular Volume 90.1 fl (85-98); Mean Platelet Volume 9.3 fL (7.4-10.4); Monocytes # 0.4 10^3/uL (0.2-0.9); Monocytes % 7.8 %; Neutrophils # 2.64 10^3/uL (1.8-7.7); Neutrophils % 48.7 %; Nucleated Red Blood Cells % 0 %; Platelet Count 200 10^3/cmm (157-399); Red Blood Count 4.95 10^6/uL (3.85-5.65); Red Cell Distribution Width 11.9 % (12.1-15.1); White Blood Count 5.41 10^3/uL (3.29-11.43)
[2024-05-29 09:57] LABS: Bilirubin Urine Neg (Negative); Blood Urine Neg (Negative); Glucose Urine UA Norm (Normal); Ketones Urine Negative (Negative); Nitrate Urine Negative (Negative); Protein Urine Neg (Negative); Urine Appearance Clear (CLEAR); Urine Color Yellow (Yellow); Urobilinogen Urine Norm (Negative); pH Urine 6 (5-7)
[2024-05-29 09:58] LABS: Add Urine Microscopic? YES; Leukocyte Esterase Urine 2+ (Negative)
--- NOTE | 2024-05-29 09:58 | P.ANESASSM_ITS ---
Pre-Anesthetic Assessment Height/Weight: Height 5 ft 10 in Preop Diagnosis: Desire permanent sterilization Operation Date: 05/30/24 11:25 Proposed Procedures p Laparoscopic Salpingectomy 46403, Z30.2(Bilateral) - Joe Goldberg MD Social No alcohol and No tobacco Exam alert, oriented x 3, clear to auscultation bilaterally and regular rate & rhythm Airway Submandibular: within normal limits Cervical ROM: within normal limits Mallampati: Class II Dentition: full Anesthetic Plan ASA status: 1 Anesthesia: General Other: No prior history of general anesthesia NPO since midnight Patient states that she takes Zoloft, only Denies any cardiac or pulmonary issues Patient is currently breast-feeding, concerned with medications postop METs greater than 4 Plan for GETA Medications/Allergies Home Medications Medication Instructions Recorded Confirmed Last Taken Type prenat.vits,ezequiel,ywz-ivol-zetbj 1 tab PO DAILY 04/23/23 05/29/24 Unknown History sertraline 50 mg tablet 50 mg PO DAILY #30 tabs 08/11/23 05/29/24 05/29/24 Rx cetirizine 10 mg capsule (Zyrtec) 10 mg PO DAILY PRN Allergy Symptoms 01/13/24 05/29/24 05/29/24 History acetaminophen 325 mg capsule 325 mg PO Q4H PRN fever or pain 03/28/24 05/29/24 Unknown Rx #60 caps ibuprofen 800 mg tablet 800 mg PO TID PRN pain #60 tabs 03/28/24 05/29/24 Unknown Rx breast pump #1 ea 05/29/24 05/29/24 Unknown Rx Allergies Allergy/AdvReac Type Severity Reaction Status Date / Time carboprost [From Hemabate] Allergy Mild ALGY-Rash Verified 05/29/24 09:19 Sulfa (Sulfonamide Allergy Mild Unknown Verified 05/29/24 09:19 Antibiotics) PFS Anesthesia Medical History No pertinent past medical history neghx:htn,dm,thyroid,dvt/pe PCP: Marlin Stapleton Behcet's syndrome Surgical History No pertinent past surgical history Family History Grandfather Colon cancer paternal Grandmother Diabetes maternal Family/Other Prostate cancer paternal uncle Denies family history of Ovarian cancer Heart disease Hyperlipidemia Breast cancer Hypertension Uterine cancer Thyroid disease Stroke Social History Smoking and tobacco/nicotine status: unknown if used tobacco/nicotine Data Anesthesia 05/29/24 09:15 05/29/24 09:15 Short CBC 05/29/24 Range/Units 09:15 WBC 5.41 (3.29-11.43) 10^3/uL Hgb 14.60 (11.27-16.99) g/dL Hct 44.6 (36-47) % MCV 90.1 (85-98) fl Plt Count 200 (157-399) 10^3/cmm Neut % (Auto) 48.7 % Neut # (Auto) 2.64 (1.8-7.7) 10^3/uL Cardiac Studies: 2 No Data to Display
[2024-05-29 10:01] LABS: Add Urine Culture? No; Bacteria Urine TRACE /hpf; RBC Urine 0-4 /hpf (0-2); Squamous Epithelial Cell Urine 0-4 /hpf (0-5); Transitional Epi Cells Urine 0-4 /hpf; WBC Urine 0-4 /hpf (0-5)
[2024-05-29 10:07] LABS: Alanine Aminotransferase 26 U/L (0-33); Albumin Level 4.3 g/dL (3.5-5.2); Alkaline Phosphatase 102 U/L (35-105); Anion Gap 10.3 (5-19); Aspartate Amino Transferase 26 U/L (0-32); Blood Urea Nitrogen 12 mg/dL (6-20); Calcium 9.3 mg/dL (8.5-10.5); Carbon Dioxide 29 mmol/L (22-29); Chloride 106 mmol/L (98-107); Globulin 2.8 g/dL (1.3-4.6); Glomerular Filtration Rate 95.2 mL/min (90-130); Glucose 87 mg/dL (65-115); Osmolality Calculated 291 mOsm/kg (285-295); Potassium 4.3 mmol/L (3.5-5.1); Sodium 141 mmol/L (136-145); Total Bilirubin 0.5 mg/dL (0.15-1.2); Total Protein 7.1 g/dL (6.6-8.7)
[2024-05-29 10:30] LABS: OR HCG Qualitative Urine Negative (Negative)
[2024-05-30] VITALS (11 sets, daily range): BP systolic 102–123; BP diastolic 65–80; PULSE 50–81; RESP 14–20; TEMP 36.1–36.6; O2SAT 92–100; BMI 29.2
[2024-05-30 06:51] LABS: OR HCG Qualitative Urine Negative (Negative)
[2024-05-30] MEDS: scopolamine 1.5 Patch 1 PATCH TRANSDERMA ×2 (07:02→07:06)
[2024-05-30] MEDS: sodium chloride 0.9% 1,000 ML 30 ML IV (07:02)
[2024-05-30] MEDS: sodium chloride 0.9% 500 ML IV (07:03)
--- NOTE | 2024-05-30 07:06 | P.ANESUD_ITS ---
Pre-Anesthetic Update Pre-Anesthetic Assessment: Date of Surgery/Procedure: 05/30/24 Preop Heidi gnosis: Desire permanent sterilization Proposed Procedure: Operation Date: 05/30/24 08:00 Proposed Procedures p Laparoscopic Salpingectomy 35752, Z30.2(Bilateral) - Joe Goldberg MD Changes from Pre-Anesthetic Assessment: No changes since yesterday, Will give Zofran for nausea. Discussed narcotics today and transmission of breastmilk. Patient was instructed that it should be safe to breast-feed baby today Plan for GETA Last Intake: Intake Last Liquid Date 05/29/24 Last Liquid Time 22:00 Last Solid Date 05/29/24 Last Solid Time 19:00 Labs Last 48hrs: Short CBC 05/29/24 Range/Units 09:15 WBC 5.41 (3.29-11.43) 10^ 3/uL Hgb 14.60 (11.27-16.99) g/ dL Hct 44.6 (36-47) % MCV 90.1 (85-98) fl Plt Count 200 (157-399) 10^3/c mm Neut % (Auto) 48.7 % Neut # (Auto) 2.64 (1.8-7.7) 10^3/u L BMP 05/29/24 09:15 Sodium 141 Potassium 4.3 Chloride 106 Carbon Dioxide 29 BUN 12 Creatinine 0.7 Glucose 87 Calcium 9.3 Liver Function 05/29/24 Range/Units 09:15 Total Bilirubin 0.5 (0.15-1.2) mg/dL AST 26 (0-32) U/L ALT 26 (0-33) U/L Alkaline Phosphata se 102 (35-105) U/L Albumin 4.3 (3.5-5.2) g/dL Urine 05/29/24 Range/Units 09:00 Urine Color Yellow (Yellow) Urine Appearance Clear (CLEAR) Urine pH 6 (5-7) Ur Specific Gravit y 1.010 (1.005-1.030) Urine Protein Neg (Negative) Urine Glucose (UA) Norm (Normal) Urine Ketones Negative (Negative) Urine Nitrate Negative (Negative) Urine Bilirubin Neg (Negative) Ur Leukocyte Joyce ase 2+ H (Negative) Urine RBC 0-4 H (0-2) /hpf Urine WBC 0-4 H (0-5) /hpf Blood Bank 05/29/24 09:15 Blood Type A Positive Rho(D) Type Rh positive Antibody Screen Negative Vitals: Temperature 97.3 F L 05/30/24 06:46 Temperature Source Temporal Artery S can 05/30/24 06:46 Pulse Rate 81 05/30/24 06:46 Respiratory Rate 16 05/30/24 06:46 Blood Pressure 109/72 05/30/24 07:06 Blood Pressure Mirna n 84 05/30/24 06:46 Pulse Oximetry 96 05/30/24 06:46 Oxygen Delivery Me thod Room Air 05/30/24 06:46 Cardiac Studies: No Data to Display
[2024-05-30] MEDS: ceFAZolin 2,000 mg SDV 2000 MG IVP (07:08)
--- NOTE | 2024-05-30 07:24 | W.PM.OPSUD ---
Surgery/Procedure H&P Update DATE OF PROCEDURE: May 30, 2024 DATE H&P PERFORMED: 05/08/24 H&P UPDATE INFORMATION: I have reviewed H&P completed within last 30 days, I have examined patient prior to procedure and No changes to prior documentation PREOP DIAGNOSIS: Desire permanent sterilization PLANNED PROCEDURE: Operation Date: 05/30/24 08:00 Proposed Procedures p Laparoscopic Salpingectomy 50205, Z30.2(Bilateral) - Joe Goldberg MD
[2024-05-30] MEDS: BUPivacaine 0.5% INJ 10 mL INJECTION (08:30)
--- NOTE | 2024-05-30 09:00 | PM.OP ---
Operative Report Date of procedure: May 30, 2024 Pre-op diagnosis: Desire permanent sterilization Post-op diagnosis: same Post-op findings: Enlarged uterus Procedure done: Laparoscopic bilateral salpingectomy Specimens removed/disposition: Left the right fallopian tube Surgeon: Joe Goldberg MD Estimated blood loss (mL): 5 IV fluids (mL): 600 Urine output (mL): 100 Complications: Some cervical bleeding Procedure: After informed consent, the patient was taken to the operating room where general anesthesia was administered. She was placed in the dorsal lithotomy position and prepped and draped in sterile fashion. Pre-Procedure Time-Out verifying the correct patient identity, correct procedure verified with consent, correct site and side, correct patient position, availability of correct implants and any special equipment or requirements was performed and acknowledge by the OR team. The patient was examined under anesthesia and found to have a normal uterus with normal adnexa. A weighted speculum was placed in the vagina, and the anterior lip of cervix was grasped with the single toothed tenaculum. A uterine manipulator was advanced into the endocervical canal and uterus. The tenaculum was removed after uterine manipulator was secured. The speculum was removed from the vagina. An intraumbilical incision was made with a scalpel. While tenting up on the abdomen, a Verres needle was admitted into the intra-abdominal cavity. A saline drop test was performed and noted to be within normal limits. Pneumoperitoneum was attained with 4 liters of carbon dioxide. The Verres needle was removed. A 5 mm Opitc view trocar and sleeve were admitted into the abdomen and laparoscopic confirmation of location was achieved. A second incision was made 3 cm above the symphysis pubis, and a 5 mm trocar sleeves were admitted into the abdomen under direct laparoscopic visualization without complication. A survey revealed normal abdominal anatomy with the exception of string adhesion to the right lower anterior abdominal wall. A 5 mm blunt probe was advanced through the second trocar sleeve, and light manipulation of ovaries and uterus to assess the posterior aspects was performed. The pelvic survey shows normal uterus, left and right adnexa. The left ovary was noted with a follicular cyst. The string adhesion was fulgurated and transected with good hemostasis with the Ligasure. The patient was placed into Trendelenburg position. The fallopian tubes were inspected bilaterally and the fimbriated ends of the fallopian tubes were visualized bilaterally. Attention was then directed to the right side. The fallopian tube and mesosalpinx were grasped and the underlying mesosalpinx was cauterized and cut using the Ligasure device. Serial cauterization and cutting was used to separate the fallopian tube from the underlying mesosalpinx until it could be amputated cutting it approximated 2 cm from the cornua. Attention was then turned to the contralateral fallopian tube, which was removed in similar fashion. Both specimens were removed through the trocar and sent to pathology. The instruments were removed. The suprapubic trocar port was removed under direct visualization insuring good hemostasis. The carbon dioxide was allowed to escape from the abdomen. The intraumbilical trocar sleeve was withdrawn under visualization with laparoscope in the sleeve to insure hemostasis. The skin incisions were closed with 3-O Monocryl subcuticular stich and Dermabond. The instruments were removed from the vagina, and excellent hemostasis was noted initially. The was notified by nurse the patietn was bleeding vaginally more than usual. ON exam cervix bleeding from dilation. After pressure and cervical clamping down the bleeding stopped. The patient tolerated the procedure well, and sponge, lap and needle count were correct times two. The patient was taken to the recovery room in good condition.
--- NOTE | 2024-05-30 10:04 | PC.NURSE ---
withdrew 10cc of fluid from catheter bulb. removed catheter without any problems. 200cc of urine emptied.
--- NOTE | 2024-05-30 10:40 | ANE.PACU2 ---
Inpatient post-anesthesia follow up: Airway intact: Yes Vital signs: Temperature 97.8 F Pulse Rate 50 Respiratory Rate 18 Blood Pressure 111/65 Pulse Oximetry 100 Oxygen Delivery Me thod Room Air Oxygen Flow Rate 6 Fraction of Inspir ed Oxygen Hydration adequate: Yes Nausea and vomiting: No Pain level: 1 Mental status: Baseline
== END 2024-05-30 10:40 | disposition home or self-care (01) ==
PROVIDERS: PCP Nurse Practitioner Family; Visit Provider Obstetrics & Gynecology
PROC: (CPT 58661; principal; 2024-05-30 08:00)
DX: Z30.2 Encounter for sterilization (principal)
CPT/HCPCS: 58661; 36415; 80053; 81001; 81025; 85025; 86850; 86900; 88302; J0131; J0690; J1100; J1885; J2250; J2405; J2704; J3010; J3490; J7030; J7040

== ENCOUNTER → 2025-03-13 12:36 | Outpatient (BNVA) | payer SELFPAY | PROVIDERS: PCP Nurse Practitioner Family; Visit Provider Nurse Practitioner Women's Health | DX: K62.9 Disease of anus and rectum, unspecified (principal) | CPT/HCPCS: 87255 ==

== ENCOUNTER 2025-07-03 06:54 | Outpatient (CLI) | payer OTHER, SELFPAY ==
--- NOTE | 2025-07-03 07:01 | US_ITS ---
WS: [id number] RIGHT UPPER QUADRANT ULTRASOUND HISTORY: RUQ Pain COMPARISON: None available. Liver: 15.2 cm in length. Normal size liver and echogenicity. No bile duct dilatation or mass. Portal Vein: Normal hepatopetal flow with monophasic waveform. Gallbladder: Normally distended gallbladder with cholelithiasis. Numerous small stones within the gallbladder. No gallbladder wall thickening. CBD: 0.4 cm Pancreas: Normal size and echogenicity. Right kidney: 11.4 cm in length. Normal size and echogenicity. No hydronephrosis or mass. Aorta and IVC: Unremarkable abdominal aorta and IVC. No ascites. US/US abdomen limited [id number] IMPRESSION: 1. Cholelithiasis without evidence for acute cholecystitis. 2. Normal liver. 3. Normal common bile duct.
== END 2025-07-03 06:55 | disposition home or self-care (01) ==
PROVIDERS: PCP Nurse Practitioner Family; Visit Provider Internal Medicine
DX: K80.20 Calculus of gallbladder without cholecystitis without obstruction (principal)
CPT/HCPCS: 76705